=== PATIENT | female | born 1980 | race Caucasian/White ===

== ENCOUNTER → 2020-05-04 10:32 | Outpatient (BNVA) | payer SELFPAY | PROVIDERS: Family Provider Family Medicine; Visit Provider Nurse Practitioner | DX: R39.0 Extravasation of urine (principal); N39.0 Urinary tract infection, site not specified | CPT/HCPCS: 80053; 81000; 87077; 87086; 87186 ==

== ENCOUNTER 2020-06-19 11:45 | Observation (INO) | payer SELFPAY ==
[2020-06-19] VITALS (23 sets, daily range): BP systolic 101–191; BP diastolic 57–122; PULSE 63–120; RESP 16–24; TEMP 36.4–40.2; O2SAT 92–99; BMI 42.0
--- NOTE | 2020-06-19 | SCC_ITS ---
Procedure Done: 1. Cystoscopy, right ureteral stent placement 13.3 seconds of fluoroscopic guidance, for a cumulative dose of 5.29 mGy, was provided to Dr. Mcintosh by the radiology department. C-arm images of the abdomen were saved for the patient's permanent record. [facility]
--- NOTE | 2020-06-19 12:12 | CT_ITS ---
WS: [id number] CT ABDOMEN PELVIS TECHNIQUE: Noncontrast CT of the abdomen and pelvis with coronal and sagittal reformatted images. CLINICAL INFORMATION: bilateral flank pain and difficulty urinating. Fever COMPARISON: None. DLP: 1850.[address] scans at [facility] use at least one of these dose optimization techniques: automat ed exposure control; mA and/or kV adjustment per patient size (includes targeted exams where dose is matched to clinical indication); or iterative reconstruction. FINDINGS: Cholelithiasis. Gallstone in the gallbladder neck. No gallbladder wall thickening or pericholecystic fluid. Moderate right hydronephrosis with right ureterectasis. Obstructing right midto distal uretera l calculus measuring 6.4 mm. Inflammatory stranding and edema about the right kidney and right ureter . Nonobstructing subcentimeter calyceal tip calculi bilaterally. No hydronephrosis in the left kidney. Noncontrast liver is unremarkable. Normal GE junction. Mild splenomegaly measuring 12 to 13 cm. Splen ic lobulation unchanged since 2012. Calcified granuloma left lower lobe. Lung bases are well aerated.Normal caliber abdominal aorta. Sigmoid diverticulosis. No evidence of acute diverticulitis. Shotty retroperitoneal lymph nodes. No p elvic or inguinal lymphadenopathy. Disc space narrowing worse L5-S1 with disc osteophyte complex. CT/CT kidney stone [id number] IMPRESSION: 1. Obstructing right mid to distal ureteral calculus measuring 6.4 mm with mod erate right hydronephrosis and ureterectasis. 2. Inflammatory stranding and edema about the right proximal ureter and kidney . 3. Cholelithiasis with prominent gallstone in the gallbladder neck measuring 9 mm. This can be followed up with ultrasound on an elective basis. 4. Mild splenomegaly. 5. Sigmoid diverticulosis. No evidence of acute diverticulitis. Notified Courtney Tripp MD [facility] [place] at 06/19/2020 1:05 PM.
--- NOTE | 2020-06-19 12:17 | W.ED.NAVMDI ---
HPI - Nausea/Vomiting/Diarrhea General: Chief complaint: Nausea/Vomiting/Diarrhea Stated complaint: Nausea/Fever/Poss Kidney Stones Time Seen by Provider: 06/19/20 11:56 Source: patient Mode of arrival: ambulatory Limitations: no limitations History of Present Illness: HPI Narrative: Patient woke up yesterday morning with bilateral flank pain that has been fluctuating in intensity since then. She has had associated fever of 101 yesterday and she has a low-grade fever in the emergency department today. She has vomited several times, but no diarrhea. She denies any sick contacts. She has a slight cough but she thinks that is because she is a smoker. She denies difficulty breathing. MD elicited complaint: nausea, vomiting and flank pain Onset (ago): day(s) (2) Description of vomiting: food contents Associated nausea: Yes Associated abdominal pain: Yes Location of pain: L flank and R flank Radiation: does not radiate Pain consistency: constant Severity: moderate Quality: stabbing Exacerbating factors: none Relieving factors: none Associated symtoms: Reports nausea; Denies change in vision, dysuria, headache(s) or palpitations Review of Systems General: Reports: 10 or more systems reviewed and unremarkable except in HPI and below Const: Denies: fever(s), chills or body aches Eyes: Denies: change in vision or blurry vision ENMT: Denies: throat pain, enlarged tonsils, odynophagia, hoarseness, mouth pain or swelling of lips/tongue Card: Denies: palpitations, irregular heart rhythm, edema or swelling of feet/ankles Resp: Denies: dyspnea, productive cough or non-productive cough GI: Reports: abdominal pain, nausea and vomiting; Denies: diarrhea : Reports: flank pain and difficulty voiding; Denies: dysuria, urinary frequency, urinary urgency or urinary hesitancy Musc: Denies: neck pain, back pain or extremity swelling Skin/Breast: Denies: rash, pruritus or erythema Neuro: Denies: headache(s), numbness in extremities or weakness in extremities Endo: Denies: polyuria, polydipsia or tired all the time PFS ED PFSH: Medical History (Updated 06/20/20 @ 11:39 by Courtney Tripp MD, [facility] [place]) Acute cystitis without hematuria Surgical History (Updated 06/19/20 @ 16:12 by Tio Mcintosh MD) History of History of tubal ligation Family History (Updated 06/19/20 @ 16:16 by Tio Mcintosh MD) Other Lung disease Urolithiasis Denies family history of Clotting disorder Anesthesia complication Social History (Reviewed 06/19/20 @ 12:20 by Courtney Tripp MD, [facility] [place]) Smoking and tobacco status: current every day smoker Alcohol intake: never Female Reproductive History: Date of last menstrual period: 05/19/20 Physical Exam Const: COMMON NORMALS: no acute distress, average body habitus, patient oriented x3, no limitations, healthy appearing, alert and well nourished HENMT: COMMON NORMALS: normocephalic, atraumatic and moist oral mucous membranes HEAD & SCALP: normocephalic and atraumatic Eye: COMMON NORMALS: Equal, round and reactive pupils present, EOMs intact bilaterally, conjunctivae normal and no scleral icterus CONJUNCTIVA: Yes conjunctivae normal PUPIL: Yes Equal, round and reactive pupils present Neck/C-Spine: COMMON NORMALS: no meningeal signs and no JVD Resp: COMMON NORMALS: normal respiratory effort, No retractions, No use of accessory muscles, clear to auscultation bilaterally and percussion normal AUSCULTATION: clear to auscultation bilaterally PERCUSSION: percussion normal Cardio: COMMON NORMALS: no JVD, regular rate, regular rhythm, S1 normal heart sound present, S2 normal heart sound present, No gallops present (Cardio), No clicks present (Cardio), No murmurs present (Cardio), No rub (Cardio) and Peripheral pulses 2+ throughout RATE: regular rate RHYTHM: regular rhythm HEART SOUNDS: S1 normal heart sound present and S2 normal heart sound present PERIPHERAL PULSES: Peripheral pulses 2+ throughout GI: COMMON NORMALS: Normal to inspection, nondistended, normoactive bowel sounds present, Soft to palpation, No hepatosplenomegaly present, no masses and no bruits PALPATION: Yes Soft to palpation, Yes Tenderness to palpation present (GI) (positive drummond's sign) Details: RUQ and Yes No hepatosplenomegaly present Back/Pelvis: GENERAL BACK: Yes CVA tenderness CVA tenderness: bilateral Extremity: COMMON NORMALS: normal to inspection, full ROM, capillary refill normal, no calf tenderness and no pedal edema Neuro: COMMON NORMALS: patient oriented x3 SENSORIUM/ORIENTATION: Yes alert MENINGEAL SIGNS: Yes no meningeal signs Skin: COMMON NORMALS: no rashes or lesions noted, no wounds, turgor normal, no jaundice, no petechiae and no mottling GENERAL SKIN EXAM: no rashes or lesions noted and turgor normal Course Reevaluation(s): Reevaluation #1: Explained my conversation with the urologist with her. Also discussed her lab and imaging findings. Advised that she will need a stent to decompress her kidney. She will therefore likely be admitted to the hospital. She voiced understanding and is in agreement with the plan. Time: 14:30 Consultations: Consultation #1: Discussed the patient with Dr. Mcintosh, urologist. He advised that the patient will need a stent placement. He will see her in between his cases and likely take to the operating room today. Time: 14:26 Vital Signs: Vital signs: Vital Signs Temperature 97.7 F 06/20/20 08:00 Pulse Rate 45 L 06/20/20 08:00 Respiratory Rate 18 06/20/20 08:00 Blood Pressure 107/66 06/20/20 08:00 Pulse Oximetry 98 06/20/20 08:00 MDM - Nausea/Vomiting/Diarrhea MDM Narrative: Medical decision making narrative: 39-year-old female patient with a 6.5 mm mid to distal ureteral stent. She also has hydronephrosis and urinary tract infection with significant leukocytosis. Because of all these she was taken by urology to have a stent placed and for further management. Medical Records: Attestation: I reviewed the patient's medical records. Lab Data: Attestation: I reviewed the patient's lab results. Labs: Lab Results 06/19/20 06/19/20 06/19/20 Range/Units 12:30 12:30 12:30 WBC 21.3 H (4.0-10.0) 10^3/ uL RBC 5.39 H (4.1-5.3) 10^6/u L Hgb 15.6 H (11.5-15.3) g/dL Hct 48.0 H (37.0-47.0) % MCV 89.1 (81-99) fL MCH 28.9 (28.0-34.0) pg MCHC 32.5 (30.0-36.0) g/dL RDW 13.6 (12.1-15.1) % Plt Count 221 (130-400) 10^3/c mm MPV 10.5 H (7.4-10.4) fL Neut % (Auto) 88.1 % Lymph % (Auto) 4.4 % [place] % (Auto) 6.6 % Eos % (Auto) 0.0 % Baso % (Auto) 0.2 % Neut # (Auto) 18.70 H (1.8-7.7) 10^3/u L Lymph # (Auto) 0.9 (0.8-4.8) 10^3/u L [place] # (Auto) 1.4 H (0.2-0.9) 10^3/u L Eos # (Auto) 0.0 (0.0-0.8) 10^3/u L Baso # (Auto) 0.1 (0.0-0.1) 10^3/u L Nucleated RBC % (a uto) 0 % Nucleated RBCs # 0.0 /100WBC Sodium 132 L (136-145) mmol/L Potassium 3.7 (3.5-5.1) mmol/L Chloride 98 (98-107) mmol/L Carbon Dioxide 24 (22-29) mmol/L Anion Gap 13.7 (5-19) BUN 9 (6-20) mg/dL Creatinine 0.7 (0.5-0.9) mg/dL GFR Calculation 93.2 (90-130) mL/min Glucose 117 H (65-115) mg/dL Calculated Osmolal ity 274 L (285-295) mOsm/k g Lactate 1.6 (0.5-2.2) mmol/L Calcium 10.9 H (8.5-10.5) mg/dL Total Bilirubin 1.2 (0.15-1.2) mg/dL AST 14 (0-32) U/L ALT 17 (0-33) U/L Alkaline Phosphata se 71 (35-105) IU/L C-Reactive Protein 290.5 H (0.0-4.9) mg/L Total Protein 7.2 (6.6-8.7) g/dL Albumin 4.0 (3.5-5.2) g/dL Globulin 3.2 (1.3-4.6) g/dL Lipase 17 (13-60) U/L HCG, Qual (Negative) Urine Color (Yellow) Urine Appearance (CLEAR) Urine pH (5-7) Ur Specific Gravit y (1.005-1.030) Urine Protein (Negative) Urine Glucose (UA) (Normal) Urine Ketones (Negative) Urine Blood (Negative) Urine Nitrate (Negative) Urine Bilirubin (Negative) Urine Urobilinogen (Negative) mg/dL Ur Leukocyte Lin ase (Negative) Urine RBC (0-2) /hpf Urine WBC (0-5) /hpf Ur Squamous Epith Cells (0-5) /hpf Amorphous Sediment Urine Bacteria (NONE) /hpf 06/19/20 06/19/20 Range/Units 12:30 12:30 WBC (4.0-10.0) 10^3/ uL RBC (4.1-5.3) 10^6/u L Hgb (11.5-15.3) g/dL Hct (37.0-47.0) % MCV (81-99) fL MCH (28.0-34.0) pg MCHC (30.0-36.0) g/dL RDW (12.1-15.1) % Plt Count (130-400) 10^3/c mm MPV (7.4-10.4) fL Neut % (Auto) % Lymph % (Auto) % [place] % (Auto) % Eos % (Auto) % Baso % (Auto) % Neut # (Auto) (1.8-7.7) 10^3/u L Lymph # (Auto) (0.8-4.8) 10^3/u L [place] # (Auto) (0.2-0.9) 10^3/u L Eos # (Auto) (0.0-0.8) 10^3/u L Baso # (Auto) (0.0-0.1) 10^3/u L Nucleated RBC % (a uto) % Nucleated RBCs # /100WBC Sodium (136-145) mmol/L Potassium (3.5-5.1) mmol/L Chloride (98-107) mmol/L Carbon Dioxide (22-29) mmol/L Anion Gap (5-19) BUN (6-20) mg/dL Creatinine (0.5-0.9) mg/dL GFR Calculation (90-130) mL/min Glucose (65-115) mg/dL Calculated Osmolal ity (285-295) mOsm/k g Lactate (0.5-2.2) mmol/L Calcium (8.5-10.5) mg/dL Total Bilirubin (0.15-1.2) mg/dL AST (0-32) U/L ALT (0-33) U/L Alkaline Phosphata se (35-105) IU/L C-Reactive Protein (0.0-4.9) mg/L Total Protein (6.6-8.7) g/dL Albumin (3.5-5.2) g/dL Globulin (1.3-4.6) g/dL Lipase (13-60) U/L HCG, Qual Negative (Negative) Urine Color Yellow (Yellow) Urine Appearance Cloudy (CLEAR) Urine pH 7 (5-7) Ur Specific Gravit y 1.005 (1.005-1.030) Urine Protein Neg (Negative) Urine Glucose (UA) Norm (Normal) Urine Ketones Negative (Negative) Urine Blood 3+ H (Negative) Urine Nitrate Positive H (Negative) Urine Bilirubin Neg (Negative) Urine Urobilinogen Norm (Negative) mg/dL Ur Leukocyte Lin ase 2+ H (Negative) Urine RBC 0-4 H (0-2) /hpf Urine WBC Too numerous to c nt H (0-5) /hpf Ur Squamous Epith Cells 0-4 H (0-5) /hpf Amorphous Sediment Not Reportable Urine Bacteria 2+ H (NONE) /hpf Imaging Data^: CT Abd/Pel: Attestation: I personally reviewed and interpreted this imaging study as follows: Radiologist's impression: [address] [address] [address] Scan Report Signed Patient: Nayeli Patel #: [id number] : 1980Acct#:[id number] Age/Sex: 39 / FADM Date: 06/19/20 Loc: ERRoom/Bed: Attending Dr: Ordering Provider/Ordering MD: Courtney Tripp MD, [facility] [place] Date of Service: 06/19/20 Procedure(s): CT kidney stone 10036 Accession Number(s): [id number] Report Number: [id number] WS: [id number] CT ABDOMEN PELVIS TECHNIQUE: Noncontrast CT of the abdomen and pelvis with coronal and sagittal reformatted images. CLINICAL INFORMATION: bilateral flank pain and difficulty urinating. Fever COMPARISON: None. DLP: 1850.[address] scans at [facility] use at least one of these dose optimization techniques: automated exposure control; mA and/or kV adjustment per patient size (includes targeted exams where dose is matched to clinical indication); or iterative reconstruction. FINDINGS: Cholelithiasis. Gallstone in the gallbladder neck. No gallbladder wall thickening or pericholecystic fluid. Moderate right hydronephrosis with right ureterectasis. Obstructing right midto distal ureteral calculus measuring 6.4 mm. Inflammatory stranding and edema about the right kidney and right ureter. Nonobstructing subcentimeter calyceal tip calculi bilaterally. No hydronephrosis in the left kidney. Noncontrast liver is unremarkable. Normal GE junction. Mild splenomegaly measuring 12 to 13 cm. Splenic lobulation unchanged since 2013. Calcified granuloma left lower lobe. Lung bases are well aerated.Normal caliber abdominal aorta. Sigmoid diverticulosis. No evidence of acute diverticulitis. Shotty retroperitoneal lymph nodes. No pelvic or inguinal lymphadenopathy. Disc space narrowing worse L5-S1 with disc osteophyte complex. CT/CT kidney stone [id number] IMPRESSION: 1. Obstructing right mid to distal ureteral calculus measuring 6.4 mm with moderate right hydronephrosis and ureterectasis. 2. Inflammatory stranding and edema about the right proximal ureter and kidney. 3. Cholelithiasis with prominent gallstone in the gallbladder neck measuring 9 mm. This can be followed up with ultrasound on an elective basis. 4. Mild splenomegaly. 5. Sigmoid diverticulosis. No evidence of acute diverticulitis. Notified Courtney Tripp MD [facility] [place] at 06/19/2020 1:05 PM. 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
[2020-06-19] MEDS: morphine 4 mg/mL SDV 1 mL IVP (12:25)
[2020-06-19] MEDS: ondansetron 2 mg/ML SDV 2 mL 4 MG IVP (12:26)
[2020-06-19] MEDS: sodium chloride 0.9% 1,000 ML 999 ML IV (12:26)
[2020-06-19 12:50] LABS: Basophils # 0.1 10^3/uL (0.0-0.1); Basophils % 0.2 %; Hemoglobin 15.6 g/dL (11.5-15.3); Lymphocytes # 0.9 10^3/uL (0.8-4.8); Lymphocytes % 4.4 %; Mean Corpuscular HGB Conc 32.5 g/dL (30.0-36.0); Mean Corpuscular Hemoglobin 28.9 pg (28.0-34.0); Mean Corpuscular Volume 89.1 fL (81-99); Mean Platelet Volume 10.5 fL (7.4-10.4); Monocytes # 1.4 10^3/uL (0.2-0.9); Monocytes % 6.6 %; Neutrophils % 88.1 %; Nucleated Red Blood Cells % 0 %; Platelet Count 221 10^3/cmm (130-400); Red Blood Count 5.39 10^6/uL (4.1-5.3); Red Cell Distribution Width 13.6 % (12.1-15.1); White Blood Count 21.3 10^3/uL (4.0-10.0)
[2020-06-19 13:06] LABS: Lactate (Lactic Acid level) 1.6 mmol/L (0.5-2.2)
[2020-06-19 13:09] LABS: Alanine Aminotransferase 17 U/L (0-33); Alkaline Phosphatase 71 IU/L (35-105); Aspartate Amino Transferase 14 U/L (0-32); Blood Urea Nitrogen 9 mg/dL (6-20); C Reactive Protein 290.5 mg/L (0.0-4.9); Calcium 10.9 mg/dL (8.5-10.5); Carbon Dioxide 24 mmol/L (22-29); Chloride 98 mmol/L (98-107); Globulin 3.2 g/dL (1.3-4.6); Glomerular Filtration Rate 93.2 mL/min (90-130); Glucose 117 mg/dL (65-115); Lipase 17 U/L (13-60); Osmolality Calculated 274 mOsm/kg (285-295); Sodium 132 mmol/L (136-145); Total Bilirubin 1.2 mg/dL (0.15-1.2); Total Protein 7.2 g/dL (6.6-8.7)
[2020-06-19 13:15] LABS: Anion Gap 13.7 (5-19)
[2020-06-19 13:16] LABS: Potassium 3.7 mmol/L (3.5-5.1)
[2020-06-19 13:24] LABS: Add Urine Microscopic? YES; Bilirubin Urine Neg (Negative); Blood Urine 3+ (Negative); Glucose Urine UA Norm (Normal); Ketones Urine Negative (Negative); Leukocyte Esterase Urine 2+ (Negative); Nitrate Urine Positive (Negative); Protein Urine Neg (Negative); Specific Gravity, Urine 1.005 (1.005-1.030); Urine Appearance Cloudy (CLEAR); Urine Color Yellow (Yellow); Urobilinogen Urine Norm (Negative); pH Urine 7 (5-7)
[2020-06-19 13:26] LABS: RBC Urine 0-4 /hpf (0-2); Squamous Epithelial Cell Urine 0-4 /hpf (0-5); WBC Urine TOO NUMEROUS TO CNT /hpf (0-5)
[2020-06-19 13:27] LABS: Add Urine Culture? Yes; Bacteria Urine 2+ /hpf
[2020-06-19] MEDS: cefTRIAXone 1,000 MG in sodium chloride 0.9% (plus) 50 ML 100 MG IV (14:26)
--- NOTE | 2020-06-19 14:28 | PM.HP ---
Providers/Chief Complaint Primary Care Provider: Dayami Sullivan MD Chief Complaint: Nausea/Fever/Poss Kidney Stones History of Present Illness Nayeli Patel is a 39 year old female resented to the emergency department today with right flank pain typical for renal colic. She also had severe nausea and vomiting that was difficult to control. The pain was described as severe, wrapping around from the right flank down to the right lower quadrant. Urinalysis showed evidence of UTI. White count was 21,000 lactic acid was 1.6. Hemodynamically she was stable. CT scan was performed demonstrated a large stone roughly 7 mm in the right mid ureter causing obstruction. No evidence of abscess etc. Because of presence of UTI and infection it was elected to proceed with cystoscopy and stent placement. In the absence of sepsis we will hold on hospitalist consultation. Review of Systems Const: Reports: malaise; Denies: fever(s) or chills Eyes: Denies: change in vision or blurry vision ENMT: Denies: throat pain Card: Denies: chest pain or palpitations Resp: Denies: dyspnea, productive cough or wheezing GI: Reports: abdominal pain, nausea and vomiting : Reports: flank pain; Denies: difficulty voiding or urinary frequency Musc: Denies: joint redness or joint warmth Skin/Breast: Denies: rash or changing lesions Neuro: Denies: numbness in extremities, Slurred speech present or seizure-like activity Psych: Denies: anxiety or memory loss Endo: Denies: flushing Cir[place]/Lymph: Denies: easy bruising or easy bleeding All/Imm: Denies: urticaria Medications/Allergies Home Medications Medication Instructions Recorded Confirmed Last Taken Type No Known Home Medications 05/04/20 06/19/20 Unknown History Allergies Allergy/AdvReac Type Severity Reaction Status Date / Time No Known Allergies Allergy Verified 05/04/20 10:32 PFSH Acute PFSH: Surgical History (Updated 06/19/20 @ 16:12 by Tio Mcintosh MD) History of History of tubal ligation Family History (Updated 06/19/20 @ 16:16 by Tio Mcintosh MD) Other Lung disease Urolithiasis Denies family history of Clotting disorder Anesthesia complication Social History (Reviewed 06/19/20 @ 12:20 by Courtney Tripp MD, [facility] [place]) Smoking and tobacco status: current every day smoker Alcohol intake: never Female Reproductive History: Date of last menstrual period: 05/19/20 Vitals/I&O/Wt Last Vital Signs Temp 99.8 F H 06/19/20 11:56 Pulse 88 06/19/20 13:05 Resp 18 06/19/20 13:05 BP 140/86 06/19/20 13:05 Pulse Ox 97 06/19/20 13:05 Weight last 48 hrs Weight 230 lb Physical Exam Const: COMMON NORMALS: no acute distress, alert and well nourished GENERAL APPEARANCE: well kempt and well developed ORIENTATION/CONSCIOUSNESS: not confused HENMT: HEAD & SCALP: normocephalic and atraumatic Eye: COMMON NORMALS: no scleral icterus CONJUNCTIVA: Yes conjunctivae normal Neck/C-Spine: GENERAL: Yes normal visual inspection Lymph: LYMPHATIC: No no lymphadenopathy noted Resp: COMMON NORMALS: normal respiratory effort EFFORT & INSPECTION: No labored and No Actively coughing GI: INSPECTION: Yes normal to inspection : COMMON NORMALS: No no CVA tenderness (Right-sided), Yes normal external appearance and Yes normal appearance of the vagina BLADDER/KIDNEY EXAM: Yes bladder normal to palpation EXTERNAL FEMALE EXAM: Yes normal appearance of the urethra and No Inguinal lymphadenopathy SPECULUM EXAM - VAGINA: No vagina atrophic Extremity: COMMON NORMALS: no clubbing, cyanosis or edema Neuro: COMMON NORMALS: no focal motor deficits SENSORIUM/ORIENTATION: Yes alert Psych: COMMON NORMALS: mental status grossly normal APPEARANCE: Yes grossly normal and Yes well kempt ATTITUDE: Yes calm and Yes engaged Skin: COMMON NORMALS: no rashes or lesions noted and no jaundice Data : 06/19/20 12:30 06/19/20 12:30 A&P Assessment and plan (1) Right ureteral calculus: High-grade obstructive changes seen on CT scan. Stone not likely the past given its size. Complicated by UTI although no evidence of sepsis. Status: Acute (2) Acute cystitis without hematuria: Initial antibiotic therapy began in the emergency department. Status: Acute Attestations Medical Necessity Statement*: UTI and stone. Requires intervention and close observation continued IV antibiotics. Coding Level of Care Code Acute Beam Doffer for [facility] Diagnoses Right ureteral calculus N20.1 Acute cystitis without hematuria N30.00
--- NOTE | 2020-06-19 16:14 | ANES.PREANE2 ---
Pre-Anesthetic Assessment Pre-Anesthetic Assessment: Height/Weight: Height 1.57 m Weight 104.326 kg Temp Pulse Resp BP Pulse Ox 97.9 F 94 16 150/86 99 06/19/20 15:52 06/19/20 15:52 06/19/20 15:52 06/19/20 15:52 06/19/20 15:52 Proposed Procedure: Operation Date: 06/19/20 16:00 Proposed Procedures p Cystoscopy(Right) - Tio Mcintosh MD Last intake: Intake Last Liquid Date 06/19/20 Last Liquid Time 10:00 Last Solid Date 06/19/20 Last Solid Time 12:00 Social: Social History: Tobacco and No alcohol Exam: Pre-Anes Outpt Exam: alert, oriented x 3 and regular rate & rhythm Additional Exam Findings (including area of procedure): Dry cough noted Airway: Submandibular: WNL Cervical ROM: WNL MP: 2 Pulmonary: Pulmonary: None reported CV/HEM: CV/HEM: None reported : Comments: Recurrent renal calculi Hepatic: Hepatic: None reported GI: GI: None reported Metabolic: Metabolic: Morbid obesity Musc/skel: Musc/skel: None reported Neuropsych: Neuropsych: None reported Anesthetic Plan: ASA status: 2E Anesthesia: General PFSH Anesthesia PFSH: Surgical History (Updated 06/19/20 @ 16:12 by Tio Mcintosh MD) History of History of tubal ligation Family History (Updated 06/19/20 @ 16:16 by Tio Mcintosh MD) Other Lung disease Urolithiasis Denies family history of Clotting disorder Anesthesia complication Social History (Reviewed 06/19/20 @ 12:20 by Courtney Tripp MD, [facility] [place]) Smoking and tobacco status: current every day smoker Alcohol intake: never Female Reproductive History: Date of last menstrual period: 05/19/20 Data Anesthesia CBC & Chem 7: 06/19/20 12:30 06/19/20 12:30 Other Labs: Laboratory Results - last 48 hr 06/19/20 06/19/20 06/19/20 12:30 12:30 12:30 WBC 21.3 H RBC 5.39 H Hgb 15.6 H Hct 48.0 H MCV 89.1 MCH 28.9 MCHC 32.5 RDW 13.6 Plt Count 221 MPV 10.5 H Neut % (Auto) 88.1 Lymph % (Auto) 4.4 [facility] % (Auto) 6.6 Eos % (Auto) 0.0 Baso % (Auto) 0.2 Neut # (Auto) 18.70 H Lymph # (Auto) 0.9 [facility] # (Auto) 1.4 H Eos # (Auto) 0.0 Baso # (Auto) 0.1 Nucleated RBC % (auto) 0 Nucleated RBCs # 0.0 Sodium 132 L Potassium 3.7 Chloride 98 Carbon Dioxide 24 Anion Gap 13.7 BUN 9 Creatinine 0.7 GFR Calculation 93.2 Glucose 117 H Calculated Osmolality 274 L Lactate 1.6 Calcium 10.9 H Total Bilirubin 1.2 AST 14 ALT 17 Alkaline Phosphatase 71 C-Reactive Protein 290.5 H Total Protein 7.2 Albumin 4.0 Globulin 3.2 Lipase 17 Urine Color Urine Appearance Urine pH Ur Specific [place] Urine Protein Urine Glucose (UA) Urine Ketones Urine Blood Urine Nitrate Urine Bilirubin Urine Urobilinogen Ur Leukocyte Esterase Urine RBC Urine WBC Ur Squamous Epith Cells Amorphous Sediment Urine Bacteria 06/19/20 12:30 WBC RBC Hgb Hct MCV MCH MCHC RDW Plt Count MPV Neut % (Auto) Lymph % (Auto) [facility] % (Auto) Eos % (Auto) Baso % (Auto) Neut # (Auto) Lymph # (Auto) [facility] # (Auto) Eos # (Auto) Baso # (Auto) Nucleated RBC % (auto) Nucleated RBCs # Sodium Potassium Chloride Carbon Dioxide Anion Gap BUN Creatinine GFR Calculation Glucose Calculated Osmolality Lactate Calcium Total Bilirubin AST ALT Alkaline Phosphatase C-Reactive Protein Total Protein Albumin Globulin Lipase Urine Color Yellow Urine Appearance Cloudy Urine pH 7 Ur Specific [place] 1.005 Urine Protein Neg Urine Glucose (UA) Norm Urine Ketones Negative Urine Blood 3+ H Urine Nitrate Positive H Urine Bilirubin Neg Urine Urobilinogen Norm Ur Leukocyte Esterase 2+ H Urine RBC 0-4 H Urine WBC Too numerous to cnt H Ur Squamous Epith Cells 0-4 H Amorphous Sediment Not Reportable Urine Bacteria 2+ H Micro: Microbiology 06/19/20 14:20 Blood Culture - Preliminary Blood SPECIMEN COLLECTED 06/19/20 14:20 Blood Culture - Preliminary Blood SPECIMEN COLLECTED Cardiac Studies: No Data to Display
[2020-06-19 16:25] LABS: HCG Qualitative Urine. Negative (Negative)
--- NOTE | 2020-06-19 16:25 | PM.OP ---
Operative Report Date of procedure: June 19, 2020 Pre-op Diagnosis: Right mid ureteral stone with obstruction with UTI Post-op diagnosis: same Procedure Done: 1. Cystoscopy, right ureteral stent placement Surgeon: Arnaldo Anesthesia: General Urine output: Not measured Complications: None Condition: stable Disposition: PACU Brief History: Ms. Patel is a very pleasant 39-year-old white female who presented to emergency department today with severe right renal colicky symptoms and diagnosis of a 6.5 mm right mid ureteral stone with obstructive changes on CT scan complicated by evidence of acute cystitis. No clinical evidence of sepsis although her white count was elevated but she had been vomiting severely. It was recommended that she undergo urgent cystoscopy and stent placement. She was pretreated with CEFTRIAXONE and cultures have been sent. Procedure: After emergent evaluation examination and obtaining of informed consent she was taken to the operating suite on 06/19/2020 where general anesthesia was administered without difficulty after appropriate timeout was performed, SCDs confirmed to be functioning, preoperative antibiotics administered, beta-vaibhav protocol confirmed. Prepped and draped in usual sterile fashion in dorsal lithotomy position paying careful attention to avoiding pressure points. 21 Martiniquais cystoscope with 30 degree lens was introduced into the urethral meatus and advanced into the bladder to videoscopy. The bladder was systematically examined. No stone was identified. Flexible tip guidewire was then advanced up the right ureter bypassing the stone and curling in the area of the upper pole calyx and then a 7 Martiniquais by 26 cm double-pigtail stent was advanced over the guidewire through the cystoscope beyond the stone into appropriate position as confirmed via fluoroscopy and cystoscopy. The bladder was drained and the procedure was completed. She tolerated the procedure well without complications and was awakened in the operating room and returned to the care of room in stable condition. PLANS: 1. Admit to the floor and observe overnight. If does well with no evidence of progression of infectious picture she can be discharged tomorrow on oral antibiotics.
--- NOTE | 2020-06-19 16:36 | SC_ITS ---
WS: [id number] INTRAOPERATIVE TECHNIQUE: 2 Spot fluoroscopic images for intraoperative purposes. FLUOROSCOPY TIME: 13.3 seconds CLINICAL INFORMATION: intra-op COMPARISON: None. FINDINGS: Partially visualized proximal right ureteral stent. SC/C-arm FL for Urology IMPRESSION: Images obtained for intraoperative purposes.
[2020-06-19] MEDS: lidocaine 4% PF 5 mL INJ INHALATION (17:20)
--- NOTE | 2020-06-19 17:21 | PM.PACU ---
PACU note PACU note: Dry cough and irritability as per pre-op evaluation Post-Anesthesia Exam: awake and vital signs stable Disposition: back to floor
[2020-06-19] MEDS: meperidine 50 mg/mL INJ 12.5 MG IVP ×2 (17:52→17:57)
--- NOTE | 2020-06-19 17:57 | ANE.PACU2 ---
Inpatient post-anesthesia follow up: Airway intact: Yes Vital signs: Temperature 104.4 F Pulse Rate [Monito r] 92 Pulse Rate 120 Respiratory Rate 20 Blood Pressure [Le ft Arm] 191/122 Blood Pressure 150/79 Pulse Oximetry 94 Oxygen Delivery Me thod Room Air Oxygen Flow Rate Fraction of Inspir ed Oxygen Hydration adequate: Yes Nausea and vomiting: No Pain level: 3 Mental status: Baseline Additional Comments: Persistent dry cough as documented pre-op. Lungs remain clear to auscultation. Sats 96% on room air.
[2020-06-19] MEDS: docusate sodium 100 mg Capsule PO (18:34)
[2020-06-19] MEDS: lactated ringers 1,000 ML 150 ML IV (18:36)
[2020-06-19] MEDS: ketorolac 30 mg/mL INJ 15 MG IVP (18:36)
--- NOTE | 2020-06-19 19:20 | PC.NURSE ---
INTRODUCTION OF STAFF AND AIDET. PT DENIES PAIN OR NEEDS AT THIS TIME.
[2020-06-19 22:59] LABS: SARS Covid-2 Antigen Negative (Negative)
[2020-06-20] VITALS (10 sets, daily range): BP systolic 92–130; BP diastolic 56–80; PULSE 43–63; RESP 17–20; TEMP 36.4–36.8; O2SAT 96–98
[2020-06-20] MEDS: ketorolac 30 mg/mL INJ 15 MG IVP ×4 (00:14→17:58)
[2020-06-20] MEDS: lactated ringers 1,000 ML 150 ML IV ×3 (01:16→16:26)
[2020-06-20] MEDS: cefTRIAXone 1,000 MG in sodium chloride 0.9% (plus) 50 ML 100 MG IV ×2 (02:09→13:44)
[2020-06-20 03:06] LABS: Basophils % 0.2 %; Hematocrit 41.1 % (37.0-47.0); Hemoglobin 13.6 g/dL (11.5-15.3); Lymphocytes # 0.8 10^3/uL (0.8-4.8); Lymphocytes % 4.9 %; Mean Corpuscular HGB Conc 33.1 g/dL (30.0-36.0); Mean Corpuscular Hemoglobin 29.2 pg (28.0-34.0); Mean Corpuscular Volume 88.4 fL (81-99); Mean Platelet Volume 10.8 fL (7.4-10.4); Monocytes # 1.2 10^3/uL (0.2-0.9); Monocytes % 6.9 %; Neutrophils # 14.88 10^3/uL (1.8-7.7); Neutrophils % 87.6 %; Nucleated Red Blood Cells % 0 %; Platelet Count 191 10^3/cmm (130-400); Red Blood Count 4.65 10^6/uL (4.1-5.3)
[2020-06-20 03:25] LABS: Anion Gap 13.2 (5-19); Blood Urea Nitrogen 13 mg/dL (6-20); Calcium 10.3 mg/dL (8.5-10.5); Carbon Dioxide 22 mmol/L (22-29); Chloride 106 mmol/L (98-107); Glomerular Filtration Rate 69.7 mL/min (90-130); Glucose 129 mg/dL (65-115); Osmolality Calculated 286 mOsm/kg (285-295); Potassium 4.2 mmol/L (3.5-5.1); Sodium 137 mmol/L (136-145)
[2020-06-20] MEDS: HYDROcodone-acetaminophen 5-325 mg Tablet 1 TAB PO ×3 (04:16→22:31)
--- NOTE | 2020-06-20 06:41 | PC.PHAR ---
's [place] did not scan at 0415, so [facility] clinicually entered med at 0642 for the 0415 dose.
--- NOTE | 2020-06-20 07:30 | PM.PN ---
Subjective Subjective: Interval history: Postoperative day #1 emergency right ureteral stent placement for stone with UTI. Discovery of CYSTITIS CYSTICA along with acute cystitis changes intraoperatively. Spiked a temperature 104 postoperatively. Curve has decreased substantially since that time and is remained in the 99 range. White count today is 17 down from 21. Typical stent symptoms but otherwise is feeling much improved. Her throat is somewhat sore. Will prescribe Cepacol lozenges. Much improved nausea. No further emesis. Feels that she is actually voiding better postoperatively. Reviewed the findings of CHRONIC CYSTITIS CYSTICA and the implications for course of antibiotics appropriate to that diagnosis. She will continue IV antibiotics for now for at least 1 or 2 more nights in the hospital. We will change her to inpatient status because of that requirement. Tentatively plan for attempt at definitive treatment of the stone next week pending her response to antibiotic therapy. All of the above was reviewed in detail with the patient today. Vitals/I&O/Wt Last Vital Signs Temp 98.3 F 06/20/20 06:00 Pulse 59 L 06/20/20 06:00 Resp 20 H 06/20/20 06:00 BP 103/61 06/20/20 06:00 Pulse Ox 96 06/20/20 06:00 06/19/20 06/20/20 06/20/20 22:59 06:59 14:59 Intake Total 1050 / 1050 1730 / 2780 Output Total 0 / 0 1900 / 1900 Balance 1050 / 1050 -170 / 880 Weight last 48 hrs Weight 240 lb 3.2 oz Weight 243 lb 6 oz Weight 230 lb Physical Exam Const: COMMON NORMALS: no acute distress, alert and well nourished GENERAL APPEARANCE: well kempt and well developed ORIENTATION/CONSCIOUSNESS: not confused Resp: COMMON NORMALS: normal respiratory effort EFFORT & INSPECTION: No labored and No Actively coughing Neuro: COMMON NORMALS: no focal motor deficits SENSORIUM/ORIENTATION: Yes alert Psych: COMMON NORMALS: mental status grossly normal APPEARANCE: Yes grossly normal and Yes well kempt ATTITUDE: Yes calm and Yes engaged Data : 06/20/20 02:53 06/20/20 02:53 Micro: Microbiology 06/19/20 14:20 Blood Culture - Preliminary Blood SPECIMEN COLLECTED 06/19/20 14:20 Blood Culture - Preliminary Blood SPECIMEN COLLECTED A&P Assessment and plan (1) Pyelonephritis of right kidney: Spiked temperature to 104+ postoperatively. Significant decline in temperature curve since that time. No evidence of progression to hemodynamically. On ceftriaxone with sensitivity demonstrated on previous urine culture in April. New culture pending. White count has decreased from 21-17. Feeling better. We will change to inpatient status and that she will have to stay overnight at least 1 more night. Status: Acute (2) Right ureteral calculus: 6.7 mm right obstructing ureteral stone complicated by UTI. Emergency stenting on 06/19/2020. Status: Acute (3) Cystitis cystica: Discovered on cystoscopy at time of emergency stent placement for right mid ureteral stone with UTI Status: Acute (4) Cigarette nicotine dependence: Will prescribe nicotine patch, 21 mg Status: Acute Attestations Medical Necessity Statement*: Obstructive pyelonephritis with high temperature spike last night postoperatively. Clinically stable but will require at least another night or 2 in the hospital on IV antibiotics before consideration for discharge on oral antibiotics. Coding Level of Care Code Acute Automotive Glass Technician for Chg Fwd Exam Expanded Problem Focused Medical Decision Making Moderate Complexity Diagnoses Pyelonephritis of right kidney N12 Right ureteral calculus N20.1 Cystitis cystica N30.80 Cigarette nicotine dependence F17.210
[2020-06-20] MEDS: docusate sodium 100 mg Capsule PO ×2 (08:27→17:58)
--- NOTE | 2020-06-20 09:35 | PC.CHAP ---
Pastoral Care Encounter/Spiritual Assessment Type of Contact [] Declined yardage caller visit [] Patient/Family/Request visit [] Outpatient visit [] Follow-up visit [] Physician referral [] Code/Alert [] Routine visit [] Staff referral [] Actively dying [] Patient sleeping [] Family support [] [] Out of room [] Palliative care [] [] Receiving care in room [] Pre-surgical visit [] Trauma [] Long length of stay [] ICU visit [] Other: Relational/Emotional Strength [] Patient feels connected with others/family/visitors/staff [] Distress [] Loneliness/isolation [] Abandonment Spirituality of Patient [] Person of Noemi [] Attends Anabaptism of their Noemi [] Believes in Prayer [] Reads Bible or Temple materials [] There are Spiritual issues to be addressed Enlisted Advisor Interventions xx[] Prayer [] Active listening [] Non-anxious presence [] Spiritual/emotional support [] Crisis/trauma care [] Spiritual counseling [] Bereavement support [] Provided bereavement packet [] Provided Bible/devotional materials [] Provided toy/stuffed animal, coloring book to patient or family member [] Provided Communion [] Anointing/[place] [] Salvation [x] Completed spiritual assessment [] Other: Impact on Illness or Injury [] Angry [] Fearful [] Anxious [] Often cries [] Exhaustion [] Unable to work [] Unable to attend scientology [] Unable to walk/stand [] Unable to read [] Unable to drive [] Unable to eat/drink [] Unable to sleep [] Unable to be with family [] Patient intubated [] Other: Summary Time spent with patient
[2020-06-20] MEDS: cetylpyridinium Lozenge 1 EACH MUCOUS MEM ×2 (10:27→22:31)
[2020-06-20] MEDS: nicotine 21 mg Patch 1 PATCH TRANSDERMA (13:38)
--- NOTE | 2020-06-20 13:49 | ANE.PACU2 ---
Inpatient post-anesthesia follow up: Airway intact: Yes Vital signs: Temperature 97.6 F Pulse Rate [Monito r] 92 Pulse Rate 47 Respiratory Rate 18 Blood Pressure [Le ft Arm] 191/122 Blood Pressure 130/56 Pulse Oximetry 97 Oxygen Delivery Me thod [ Room Air Current Rate & Del nisa] Oxygen Delivery Me thod Room Air Oxygen Flow Rate Fraction of Inspir ed Oxygen Hydration adequate: Yes Nausea and vomiting: No Pain level: 1 Mental status: Baseline Additional Comments: Patient states this morning she has some double vision when looking at things close up, but not far away. Denies pain, ROM difficulties, photophobia, or any other visual disturbance. Educated patient that if issue continues she will need to follow up with her doctor and see opthalmology.
--- NOTE | 2020-06-20 18:16 | ECG_ITS ---
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 Measurements Intervals [place] Rate: 57 P: 36 [place]: 132 QRS: 36 QRSD: 102 T: 18 QT: 396 QTc: 387 Interpretive Statements SINUS BRADYCARDIA WITH MARKED SINUS ARRHYTHMIA Compared to ECG 09/29/2015 11:55:16 Sinus rhythm no longer present Electronically Signed On 06-20-2020 19:29:10 PERCH MENDER by Toro Baig M.D. [id number]
--- NOTE | 2020-06-20 18:20 | PM.MISC ---
Miscellaneous Note Note: Evening check postoperative day #1 emergency right ureteral stent placement Overall clinical picture is much improved. She has had no further if fever since last night. Minimal pain in the right flank. Her pulse has been low in the 50s but she otherwise is asymptomatic related to it. No dizziness or orthostasis upon standing and walking. Also complained of some blurring of her vision with reading. Placed on Nicorette patch this morning due to nicotine dependence withdrawal. Will obtain an EKG tonight.
[2020-06-21] MEDS: ketorolac 30 mg/mL INJ 15 MG IVP ×3 (00:11→11:55)
[2020-06-21 01:38] VITALS: BP 107/70; PULSE 72; RESP 18; TEMP 36.4; O2SAT 95
[2020-06-21] MEDS: cefTRIAXone 1,000 MG in sodium chloride 0.9% (plus) 50 ML 100 MG IV (03:26)
[2020-06-21] MEDS: lactated ringers 1,000 ML 100 ML IV (03:33)
[2020-06-21 03:46] LABS: Basophils % 0.3 %; Eosinophils # 0.1 10^3/uL (0.0-0.8); Eosinophils % 1.1 %; Hematocrit 38.5 % (37.0-47.0); Hemoglobin 12.4 g/dL (11.5-15.3); Lymphocytes # 1.4 10^3/uL (0.8-4.8); Lymphocytes % 13.2 %; Mean Corpuscular HGB Conc 32.2 g/dL (30.0-36.0); Mean Corpuscular Hemoglobin 28.7 pg (28.0-34.0); Mean Corpuscular Volume 89.1 fL (81-99); Mean Platelet Volume 11.7 fL (7.4-10.4); Monocytes # 0.7 10^3/uL (0.2-0.9); Monocytes % 6.4 %; Neutrophils # 8.23 10^3/uL (1.8-7.7); Neutrophils % 78.6 %; Nucleated Red Blood Cells % 0 %; Platelet Count 194 10^3/cmm (130-400); Red Blood Count 4.32 10^6/uL (4.1-5.3); Red Cell Distribution Width 14.1 % (12.1-15.1); White Blood Count 10.5 10^3/uL (4.0-10.0)
[2020-06-21 04:10] LABS: Anion Gap 11.6 (5-19); Blood Urea Nitrogen 15 mg/dL (6-20); Calcium 10.2 mg/dL (8.5-10.5); Carbon Dioxide 25 mmol/L (22-29); Chloride 106 mmol/L (98-107); Glomerular Filtration Rate 79.9 mL/min (90-130); Glucose 90 mg/dL (65-115); Osmolality Calculated 288 mOsm/kg (285-295); Potassium 3.6 mmol/L (3.5-5.1); Sodium 139 mmol/L (136-145)
[2020-06-21 06:00] VITALS: BMI 43.9
[2020-06-21 07:06] VITALS: BP 174/95; PULSE 88; RESP 18; TEMP 36.9; O2SAT 96
[2020-06-21 08:10] VITALS: BP 166/79; PULSE 67; RESP 18; TEMP 37; O2SAT 94
[2020-06-21] MEDS: nicotine 21 mg Patch 1 PATCH TRANSDERMA (08:12)
[2020-06-21] MEDS: docusate sodium 100 mg Capsule PO (08:12)
[2020-06-21] MEDS: bisacodyl 5 mg Tablet 10 MG PO (11:13)
[2020-06-21] MEDS: ondansetron 2 mg/ML SDV 2 mL 4 MG IVP (11:14)
[2020-06-21] MEDS: HYDROcodone-acetaminophen 5-325 mg Tablet 1 TAB PO (11:28)
[2020-06-21 11:35] VITALS: BP 158/88; PULSE 66; RESP 19; O2SAT 98
--- NOTE | 2020-06-21 12:17 | P.DS_ITS ---
Discharge Providers Date of Admission: 06/19/20 17:00 Date of Discharge: June 21, 2020 Attending Provider at Admission: Tio Mcintosh MD Attending Provider at Discharge: Tio Mcintosh MD Primary Care Provider: Dayami Sullivan MD Diagnoses at Discharge Discharge Diagnosis (1) Right ureteral calculus: Status: Acute Permanent problem details: Emergency stenting.Complicated by UTI. (2) Cystitis cystica: Status: Acute Permanent problem details: Discovered on cystoscopy at time of stent placement for right ureteral calculus with UTI (3) Cigarette nicotine dependence: Status: Acute Reason for Visit Reason for Visit: Nausea/Fever/Poss Kidney Stones Hospital Course Hospital Course She was admitted through the emergency department for UTI and obstructing right mid ureteral stone and underwent emergency right ureteral stenting. Immediately postoperatively she developed a fever of 104 blood cultures were obtained. At discharge blood cultures are still negative. Urine culture did grow E. coli that was pansensitive. After the stent was placed she immediately improved symptomatically and did not have a picture consistent with pyelonephritis but rather just typical stent symptoms at that point. Intraoperatively she was found to have CHRONIC CYSTITIS CYSTICA and plans for continuing antibiotic for treatment time appropriate for this diagnosis were made and initiated at discharge. She did develop bradycardia postoperatively and EKG showed sinus arrhythmia but by discharge that had corrected and her rhythm was back to normal sinus at her baseline rate of 80 at discharge. Never experienced any chest pain shortness of breath etc. No known cardiac issues. At discharge she was deemed to be a good candidate for further convalescence at home and to continue oral antibiotics until completely stone free and cystitis cystica has been treated. We will plan on follow-up on 06/23/2020 for final scheduling of ESWL to the right ureteral stone on 06/26/2020. Physical Exam Const: COMMON NORMALS: no acute distress, alert and well nourished GENERAL APPEARANCE: well kempt and well developed ORIENTATION/CONSCIOUSNESS: not confused Resp: COMMON NORMALS: normal respiratory effort EFFORT & INSPECTION: No labored and No Actively coughing Neuro: COMMON NORMALS: no focal motor deficits SENSORIUM/ORIENTATION: Yes alert Psych: COMMON NORMALS: mental status grossly normal APPEARANCE: Yes grossly normal and Yes well kempt ATTITUDE: Yes calm and Yes engaged Discharge Data Data Completed and Pending: Completed Studies During Hospitalization Category Date Time Status CT kidney stone 7 4176 Urgent Cat Scan 06/19/20 12:12 Completed Pending at discharge Category Date Time Status Blood Culture Sta t Lab 06/19/20 14:20 Results Urine Culture Sta t Lab 06/19/20 12:30 Results Labs from last 24 hours 06/21/20 06/21/20 02:13 02:13 WBC 10.5 H RBC 4.32 Hgb 12.4 Hct 38.5 MCV 89.1 MCH 28.7 MCHC 32.2 RDW 14.1 Plt Count 194 MPV 11.7 H Neut % (Auto) 78.6 Lymph % (Auto) 13.2 Hill % (Auto) 6.4 Eos % (Auto) 1.1 Baso % (Auto) 0.3 Neut # (Auto) 8.23 H Lymph # (Auto) 1.4 Hill # (Auto) 0.7 Eos # (Auto) 0.1 Baso # (Auto) 0.0 Nucleated RBC % (a uto) 0 Nucleated RBCs # 0.0 Sodium 139 Potassium 3.6 Chloride 106 Carbon Dioxide 25 Anion Gap 11.6 BUN 15 Creatinine 0.8 GFR Calculation 79.9 L Glucose 90 Calculated Osmolal ity 288 Calcium 10.2 Vitals: Last Vital Signs Temp 98.6 F 06/21/20 08:10 Pulse 66 06/21/20 11:35 Resp 19 H 06/21/20 11:35 BP 158/88 06/21/20 11:35 Pulse Ox 98 06/21/20 11:35 Discharge Plan Discharge Patient Disposition: Home Condition: Stable Prescriptions: [place] 5-325 mg tablet 1 tab PO Q8H PRN (Reason: pain) Qty: 10 RF: 0 sulfamethoxazole-trimethoprim 800-160 mg tablet 1 tab PO BID 30 Days Qty: 60 RF: 2 Discharge Orders: Discharge Order (Routine); Ordered 06/21/20 Ordered By: Tio Mcintosh Referrals: Tio Mcintosh MD [Physician] - 06/23/20 ([facility]) Discharge Diet: Usual diet Discharge Activity: Increase activity as tolerated Activity Restrictions/Additional Instructions: 1. We will plan on shockwave therapy to the stones on Friday the . 2. I would like to see you in my office on this Friday the with a plain x- ray at the hospital [facility] for final plans. 3. Prescription for an antibiotic was sent to [facility] pharmacy. Because of the chronic bladder infection you will need to be on that for a while. Please call if you feel that the infection symptoms are worsening prior to your follow-up. Some pain medicine was also sent to be used as needed for pain. Discharge Attestations Time Spent in Discharge Care*: greater than 30 min Status at Discharge: Cognitive status at discharge: cognitively intact , Behavioral status at discharge: cooperative , Functional status at discharge: independent ambulation Overall status at discharge: patient is progressing back to baseline Quality Metrics Clinical Quality Measures During this hospital stay, did patient experience: None Coding Level of Care Code Acute Tube Making Machine Operator for Chg Fwd Diagnoses Right ureteral calculus N20.1 Cystitis cystica N30.80 Cigarette nicotine dependence F17.210
[2020-06-21 16:43] VITALS: BP 158/88; PULSE 66; RESP 19; O2SAT 98
--- NOTE | 2020-06-21 16:49 | PC.RESP ---
Smoking Cessation information sent to patient.
== END 2020-06-21 14:00 | disposition home or self-care (01) ==
LOC: ER 11:56 → OR 15:16 → MEDSURG 17:00
PROVIDERS: Admitting Provider Urology; Emergency Provider Family Medicine; PCP Family Medicine; Visit Provider Urology
PROC: 0TJB8ZZ Inspection of Bladder, Via Natural or Artificial Opening Endoscopic (ICD-10-PCS; CPT 52000; principal; 2020-06-19 16:00)
PROC: (CPT 50605; 2020-06-19 16:00)
DX: N20.1 Calculus of ureter (principal); N30.00 Acute cystitis without hematuria; N30.80 Other cystitis without hematuria; F17.210 Nicotine dependence, cigarettes, uncomplicated; B96.20 Unspecified Escherichia coli [E. coli] as the cause of diseases classified elsewhere; R00.1 Bradycardia, unspecified; R11.2 Nausea with vomiting, unspecified
CPT/HCPCS: 52332; 12345; 36415; 74176; 76000; 80048; 80053; 81001; 81025; 83605; 83690; 85025; 86140; 87040; 87077; 87086; 87186; 87426; 93005; 96361; 96365; 96366; 96375; 99283; 99285; C2625; G0378; J0131; J0330; J0696; J1885; J2001; J2175; J2250; J2270; J2405; J2704; J2710; J3010; J3490; J7030

== ENCOUNTER 2020-06-23 09:34 | Outpatient (CLI) | payer SELFPAY ==
--- NOTE | 2020-06-23 09:45 | XR_ITS ---
WS: [id number] [facility]UB, 06/23/2020 Clinical Data: URETERAL STONE Comparison: CT abdomen and pelvis, 06/19/2020. Findings: No abnormal intraabdominal masses are seen. There is no dilatated small bowel or evidence of obstruct ion. There is a right ureteral stent extending from the right renal pelvis into the bladder. There are loco ateral renal calculi. The right midureteral calculus is not definitely visualized on this study. XR/XR KUB [id number] Impression: 1. Right ureteral stent. 2. Bilateral renal calculi.
== END 2020-06-23 09:35 | disposition home or self-care (01) ==
LOC: RAD 09:36
PROVIDERS: PCP Family Medicine; Visit Provider Urology
DX: N20.1 Calculus of ureter (principal); Z96.0 Presence of urogenital implants; N20.0 Calculus of kidney
CPT/HCPCS: 74018; 81003

== ENCOUNTER 2020-06-26 11:41 | Day surgery (SDC) | payer SELFPAY ==
[2020-06-23 18:04] VITALS: BMI 40.2
[2020-06-26] VITALS (7 sets, daily range): BP systolic 130–178; BP diastolic 78–97; PULSE 57–81; RESP 18–20; TEMP 36.2–36.7; O2SAT 96–100
--- NOTE | 2020-06-26 | SCC_ITS ---
Procedure Done: 1. Cystoscopy with right retrograde ureteropyelogram 2. Right ureteroscopy, laser lithotripsy, stent exchange 21.7 seconds of fluoroscopic guidance, for a cumulative dose of 7.53 mGy, was provided to Dr. Mcintosh by the radiology department. C-arm images of the abdomen were saved for the patient's permanent record. [facility]
--- NOTE | 2020-06-26 12:00 | SC_ITS ---
WS: [id number] Exam: C-arm FL for Urology Date/Time of Exam: 06/26/2020 12:00 PM Reason For Exam: Right ureteroscopy C-arm images of right retrograde pyelogram are performed. A right ureteral catheter has been placed. Contrast injection through the catheter confirms good posi tioning in the right renal pelvis with free spillage of contrast into the bladder. No ureteral obstru ction is demonstrated. There is no abnormal dilatation of the right renal collecting system or ureter .
[2020-06-26] MEDS: sodium chloride 0.9% 1,000 ML 30 ML IV (12:37)
[2020-06-26 12:41] LABS: OR HCG Qualitative Urine Negative (Negative)
--- NOTE | 2020-06-26 12:44 | ANES.PREANE2 ---
Pre-Anesthetic Assessment Pre-Anesthetic Assessment: Height/Weight: Height 1.57 m Weight 99.79 kg Temp Pulse Resp BP Pulse Ox 98.0 F 57 L 18 178/78 96 06/26/20 12:22 06/26/20 12:22 06/26/20 12:22 06/26/20 12:22 06/26/20 12:22 Preop Diagnosis: Right ureteral stone Proposed Procedure: Operation Date: 06/26/20 13:10 Proposed Procedures p Laser Lithotripsy 33477 [id number] N20.1(Not Applicable) - MD el Marie Cystoscopy(Not Applicable) - MD el Marie Retrograde Pyelogram(Right) - MD el Marie Ureteroscopy(Not Applicable) - MD el Marie Ureteral Stent Exchange(Not Applicable) - Tio Mcintosh MD Familial anesthetic complications: PONV w/ c section, but not with previous stent placement Was Beta Lobito taken within 24 hours: N/A Last intake: Intake Last Liquid Date 06/26/20 Last Liquid Time 08:00 Last Solid Date 06/25/20 Last Solid Time 20:00 Social: Social History: Tobacco Exam: Pre-Anes Outpt Exam: alert, oriented x 3, clear to auscultation bilaterally and regular rate & rhythm Airway: Cervical ROM: WNL MP: 2 Dentition: Full Metabolic: Metabolic: Morbid obesity Anesthetic Plan: ASA status: 1 Anesthesia: General Risk of > 500 ml blood loss (7ml/kg in children): No Meds/Allergies Current Medications: Current Medications Generic Name Dose Route Start Last Admin Trade Name Freq PRN Reason Stop Dose Admin Sodium Chloride 1,000 mls @ 30 ml s/hr 06/26/20 12:15 06/26/20 12:37 Sodium Chloride 0.9% IV 06/27/20 12:14 30 mls/hr .Q24H ARIC Administration PFSH Anesthesia PFSH: Medical History Acute cystitis without hematuria Surgical History History of History of tubal ligation Family History Other Lung disease Urolithiasis Denies family history of Clotting disorder Anesthesia complication Social History Smoking and tobacco status: current every day smoker Alcohol intake: never Adopted: No Caregiver/support person: No Lives independently: No Household members: spouse Marital status: Current occupational status: employed Female Reproductive History: Date of last menstrual period: 06/23/20 Data Anesthesia Other Labs: Laboratory Results - last 48 hr 06/26/20 12:08 Urine HCG, Qual Negative Cardiac Studies: No Data to Display
--- NOTE | 2020-06-26 13:23 | W.PM.OPSUD ---
Surgery/Procedure H&P Update DATE OF PROCEDURE: June 26, 2020 DATE H&P PERFORMED: 06/23/20 H&P UPDATE INFORMATION: I have reviewed H&P completed within last 30 days, I have examined patient prior to procedure, No changes to prior documentation and H&P is in [facility] on date indicated PREOP DIAGNOSIS: Right ureteral stone PLANNED PROCEDURE: Operation Date: 06/26/20 13:10 Proposed Procedures p Laser Lithotripsy [id number] N20.1(Not Applicable) - Tio Mcintosh MD s Cystoscopy(Not Applicable) - Tio Mcintosh MD s Retrograde Pyelogram(Right) - MD el Marie Ureteroscopy(Not Applicable) - Tio Mcintosh MD s Ureteral Stent Exchange(Not Applicable) - Tio Mcintosh MD
[2020-06-26] MEDS: levofloxacin-dextrose 5 % 500 MG/100 ML PREMIX 100 MG IV (13:31)
--- NOTE | 2020-06-26 14:41 | P.OP_ITS ---
Operative Report Date of procedure: June 26, 2020 Pre-op Diagnosis: Right ureteral stone Post-op diagnosis: same Procedure Done: 1. Cystoscopy with right retrograde ureteropyelogram 2. Right ureteroscopy, laser lithotripsy, stent exchange Implants: 4.7 x 26 cm double-pigtail stent without string. Specimens removed/disposition: Stone fragments Pathology: Stone fragments Surgeon: Arnaldo Anesthesia: General Urine output: Not measured Complications: None Findings: There were 2 stones in the right mid ureter in the same location as previously defined on CT scan. The ureter was nicely dilated and allowed easy access to the stones via ureteroscopy. Complete fragmentation obtained fragments removed. Stent left indwelling temporarily Condition: stable Disposition: PACU Brief History: Mrs. Patel is a very pleasant 39-year-old white female who recently presented with severe right renal colicky symptoms and was found to have a UTI but no evidence of systemic symptoms related to the infection. She underwent urgent/emergent stent placement and was hospitalized for a couple of days for close observation on antibiotic therapy. At time of stent placement CYSTITIS CYSTICA was identified. At discharge she was placed on a prolonged course of antibiotics for treatment of her chronic bladder infection and plans were made to treat the stones definitively after she had recovered from her acute process. She is admitted now to outpatient surgery for cystoscopy retrograde ureteroscopy laser and stent. Interestingly she admitted that she was now feeling much better than she had for quite some time and I expect that this is related to the onset of treatment for her UTI which has affected her chronic cystitis symptoms. Procedure: After routine preoperative evaluation examination and obtaining of informed consent she was taken to the operating suite on 06/26/2020 where general anesthesia was administered without difficulty after appropriate timeout was performed, SCDs confirmed to be functioning, preoperative antibiotics administered, beta-vaibhav protocol confirmed. Prepped and draped in usual sterile fashion in dorsolithotomy position paying careful attention to avoiding pressure points. 21 Martiniquais cystoscope with 30 degree lens was introduced into the urethra meatus and advanced into the bladder under videoscopy. A flexible tip guidewire was passed up the right ureter next to the stent and the stent was removed without difficulty with confirmation of proximal uncurling via fluoroscopy. The wire was secured to the drapes as a safety wire. 7 Martiniquais offset semirigid ureteroscope was advanced up the right ureter next to the guidewire where the stones were encountered in the mid sacral area. Previously it was thought to be just 1 stone but there were actually 2 stones identified. A 365 ?m thulium superpulse laser fiber was utilized to fragment the stones into sand and very small fragments that were removed with a Dayami parachute basket. 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 Cystoscope was then backloaded over the guidewire and a 4.7 Martiniquais by 26 cm double-pigtail stent without string attached distally was advanced over the guidewire through the cystoscope into appropriate position as confirmed via fluoroscopy and cystoscopy. Final inspection confirmed all the fragments that had flushed into the bladder were removed. There is also a reconfirmation of diffuse severe chronic cystitis cystica. Awakened in the operating room and returned to the recovery in stable condition. PLANS: 1. Discharge from outpatient surgery today 2. Follow-up late this week for cystoscopy and stent removal in the office 3. Continue all SEPTRA DS 1 p.o. twice daily for prolonged course of antibiotics for CHRONIC CYSTITIS CYSTICA.
--- NOTE | 2020-06-26 14:56 | SUR.PHASEI ---
PT AWAKE ALERT ON RA PT TAKING ICE CHIPS CALL LIGHT WITHIN REACH, PT CARE ASSUMED BY Naty TENA RN.
--- NOTE | 2020-06-26 15:45 | ANE.PACU2 ---
Inpatient post-anesthesia follow up: Airway intact: Yes Vital signs: Temperature 97.2 F Pulse Rate 66 Respiratory Rate 18 Blood Pressure 138/97 Pulse Oximetry 96 Oxygen Delivery Me thod Room Air Oxygen Flow Rate 8 Fraction of Inspir ed Oxygen Hydration adequate: Yes Nausea and vomiting: No Pain level: 3 Mental status: Baseline
[2020-07-03 13:48] LABS: Stone Source RIGHT URETER
== END 2020-06-26 15:44 | disposition home or self-care (01) ==
PROVIDERS: Anesthesiology; PCP Family Medicine; Visit Provider Urology
PROC: (CPT 52356; principal; 2020-06-26 13:10)
PROC: 0TJB8ZZ Inspection of Bladder, Via Natural or Artificial Opening Endoscopic (ICD-10-PCS; CPT 52000; 2020-06-26 13:10)
PROC: 0TJ98ZZ Inspection of Ureter, Via Natural or Artificial Opening Endoscopic (ICD-10-PCS; CPT 52351; 2020-06-26 13:10)
PROC: (CPT 52356; 2020-06-26 13:10)
DX: N20.1 Calculus of ureter (principal); E66.01 Morbid (severe) obesity due to excess calories; Z68.41 Body mass index [BMI] 40.0-44.9, adult; F17.200 Nicotine dependence, unspecified, uncomplicated; Z84.1 Family history of disorders of kidney and ureter; N30.20 Other chronic cystitis without hematuria
CPT/HCPCS: 52356; 12345; 76000; 81025; 82365; 84703; 88300; C2625; J1956; J2704; J3010; J3490; J7030

== ENCOUNTER → 2020-06-30 10:27 | Outpatient (BNVA) | payer SELFPAY | PROVIDERS: PCP Family Medicine; Visit Provider Urology | DX: N12 Tubulo-interstitial nephritis, not specified as acute or chronic (principal); N30.80 Other cystitis without hematuria; Z96.0 Presence of urogenital implants | CPT/HCPCS: 81003 ==

== ENCOUNTER → 2020-08-22 10:09 | Outpatient (BNVA) | payer SELFPAY | PROVIDERS: PCP Family Medicine; Visit Provider Urology | DX: N30.80 Other cystitis without hematuria (principal); N20.9 Urinary calculus, unspecified | CPT/HCPCS: 81003 ==

== ENCOUNTER 2020-11-21 10:04 | Outpatient (CLI) | payer SELFPAY ==
--- NOTE | 2020-11-21 10:00 | XRR_ITS ---
PROCEDURE INFORMATION: Exam: XR Abdomen Exam date and time: 11/21/2020 10:09 AM Age: 40 years old Clinical indication: Condition or disease; Other: Other cystitis without hematuria; Prior surgery; Surgery type: Tubal; Additional info: N30.80 - other cystitis without hematuria TECHNIQUE: Imaging protocol: XR of the abdomen. Views: Frontal supine view of the abdomen. 1 View. COMPARISON: CR XR KUB [id number] 06/23/2020 9:46 AM FINDINGS: Tubes, catheters and devices: Interval removal of previously visualized right double-J catheter. Gastrointestinal tract: Right-sided bowel dilatation and prominent stool. Organs: Multiple renal calcifications, including a 6 mm calculus overlying the lower pole the left kidney. Cholelithiasis. Bones/joints: Unremarkable. XR/XR KUB [id number] IMPRESSION: 1. Multiple renal calcifications, including a 6 mm calculus overlying the lower pole the left kidney. 2. Additional findings as described above.
== END 2020-11-21 10:05 | disposition home or self-care (01) ==
LOC: RAD 10:07
PROVIDERS: PCP Family Medicine; Visit Provider Urology
DX: N30.80 Other cystitis without hematuria (principal); N20.0 Calculus of kidney
CPT/HCPCS: 74018; 81003

== ENCOUNTER → 2021-03-20 08:46 | Outpatient (BNVA) | payer BC, SELFPAY | PROVIDERS: PCP Family Medicine; Visit Provider Urology | DX: N30.80 Other cystitis without hematuria (principal); N20.9 Urinary calculus, unspecified | CPT/HCPCS: 81003 ==

== ENCOUNTER 2021-05-09 10:23 | Outpatient (CLI) | payer BC, SELFPAY ==
--- NOTE | 2021-05-09 10:30 | MM_ITS ---
WS: [id number] BILATERAL DIGITAL SCREENING MAMMOGRAPHY WITH CAD CLINICAL INFORMATION: SCREENING HISTORY: Screening mammogram. No current complaints. COMPARISON: None. TECHNIQUE: Bilateral CC and MLO views. FINDINGS: Scattered fibroglandular densities bilaterally. No suspicious focal mass, asymmetry, calcifications, or architectural distortion. No evidence of malignancy. Incidental lymph node left axillary tail with fatty hilum. MM/[id number] IMPRESSION: BI-RADS: 2-Benign FOLLOW UP: 1 Year Follow-up Recommend return to annual screening mammography.
== END 2021-05-09 10:24 | disposition home or self-care (01) ==
LOC: RADSHAW 10:29
PROVIDERS: PCP Family Medicine; Visit Provider Family Medicine
DX: Z12.31 Encounter for screening mammogram for malignant neoplasm of breast (principal)
CPT/HCPCS: 77067

== ENCOUNTER 2021-11-01 14:09 | Outpatient (CLI) | payer BC, SELFPAY ==
--- NOTE | 2021-11-01 13:00 | XR_ITS ---
WS: [id number] KUB, AP view, 11/01/2021 Clinical Data: urolithiasis Comparison: KUB, 11/21/2020. Findings: No abnormal intraabdominal masses are seen. There is no dilatated small bowel or evidence of obstruct ion. There may be faint calcifications overlying the inferior aspect of the right kidney. There are calcif ications overlying the left kidney. No phleboliths are seen in the pelvis. There is a gallstone in th e right upper quadrant. XR/XR KUB [id number] Impression: Small bilateral renal calculi.
== END 2021-11-01 14:10 | disposition home or self-care (01) ==
PROVIDERS: PCP Family Medicine; Visit Provider Urology
DX: N20.0 Calculus of kidney (principal)
CPT/HCPCS: 74018; 81003

== ENCOUNTER 2022-05-07 14:55 | Outpatient (CLI) | payer BC, SELFPAY ==
--- NOTE | 2022-05-07 15:03 | XR_ITS ---
WS: [id number] Exam: XR KUB [id number] Date/Time of Exam: 05/07/2022 3:16 PM Reason For Exam: STONES Comparison 11/01/2021. No bowel obstruction or free air. Small calcification superimpose both kidneys and apparently represe nt known renal stones. No sign of organ enlargement. Regional bony structures are intact. XR/XR KUB [id number] IMPRESSION: 1. Small calcifications seen in the region of both kidneys apparently represent ing known renal stones. 2. No acute abdominal finding. 3. 2.5 cm rounded calcification in the right abdomen that apparently represents a known cholelithiasis.
== END 2022-05-07 14:56 | disposition home or self-care (01) ==
LOC: RAD 14:57
PROVIDERS: PCP Family Medicine; Visit Provider Urology
DX: N20.0 Calculus of kidney (principal)
CPT/HCPCS: 74018

== ENCOUNTER → 2022-05-08 14:09 | Outpatient (BNVA) | payer BC, SELFPAY | PROVIDERS: PCP Family Medicine; Visit Provider Urology | DX: N20.9 Urinary calculus, unspecified (principal); N30.80 Other cystitis without hematuria | CPT/HCPCS: 81003 ==

== ENCOUNTER 2022-06-13 09:53 | Outpatient (CLI) | payer BC, SELFPAY ==
--- NOTE | 2022-06-13 10:03 | MM_ITS ---
WS: [id number] Bilateral screening 3D tomosynthesis digital mammogram, 06/13/2022 Clinical Data: SCREENING Comparison: 05/09/2021 Findings: The breast parenchymal pattern shows fibroglandular tissue No spiculated masses or clustered calcific ations are seen. There are no secondary signs of carcinoma. There are lymph nodes in the left axilla. MM/[id number] Impression: 1. Negative bilateral mammogram unchanged. 2. Recommend annual screening mammograms. BIRADS: 1-Negative FOLLOW UP: 1 Year Follow-up The CAD coat checker was used.
== END 2022-06-13 09:54 | disposition home or self-care (01) ==
LOC: RAD 09:55
PROVIDERS: PCP Family Medicine; Visit Provider Family Medicine
DX: Z12.31 Encounter for screening mammogram for malignant neoplasm of breast (principal)
CPT/HCPCS: 77063; 77067

== ENCOUNTER → 2025-04-09 12:52 | Outpatient (BNVA) | payer BC, SELFPAY | PROVIDERS: PCP Family Medicine; Visit Provider Registered Nurse Neonatal Intensive Care | DX: J02.9 Acute pharyngitis, unspecified (principal) | CPT/HCPCS: 87880 ==